=== PATIENT | female | born 1985 | race Caucasian/White ===

== ENCOUNTER 2018-09-02 17:19 | Emergency (ER) | payer OTHER ==
[2018-09-02 19:17] VITALS: BP 115/68
--- NOTE | 2018-09-02 20:03 | ED ---
Skin Complaint - HPI Summary HPI Summary: 33 yr old female with the complaint of left thumb pain. Onset of pain was yesterday. She states her thumb felt a little sore, but she didn't see anything. She recalls no trauma, no working to put at risk for foreign body. She noticed early today that she had a blister that is whitish forming and the thumb appeared a little red. The patient has increasing pain. No redness to the forearm. No fever or chills. - History of Current Complaint Chief Complaint: UCSkin Time Seen by Provider: 09/02/18 19:28 Stated Complaint: SKIN ISSUE LEFT THUMB Hx Last Menstrual Period: 08/26/18 Pain Intensity: 4 - Allergy/Home Medications Allergies/Adverse Reactions: Allergies Allergy/AdvReac Type Severity Reaction Status Date / Time Sulfa (Sulfonamide Allergy Rash Verified 09/02/18 19:18 Antibiotics) Home Medications: Home Medications Propranolol HCl 10 mg PO DAILY 09/02/18 [History Confirmed 09/02/18] Vilazodone (NF) [Viibryd (NF)] 40 mg PO DAILY 09/02/18 [History Confirmed ] PMH/Surg Hx/FS Hx/Imm Hx - Surgical History Surgery Procedure, Year, and Place: right wrist surgery Infectious Disease History: No Infectious Disease History: Denies: Traveled Outside the [place] in Last 30 Days - Social History Alcohol Use: None Substance Use Type: Reports: None Smoking Status (MU): Never Smoked Tobacco Review of Systems Constitutional: Negative Positive: Other - left thumb with erythema and small white blister All Other Systems Reviewed And Are Negative: Yes Physical Exam Triage Information Reviewed: Yes Vital Signs On Initial Exam: Initial Vitals Temp Pulse Resp BP Pulse Ox 98.2 F 62 16 115/68 100 09/02/18 19:12 09/02/18 19:12 09/02/18 19:12 09/02/18 19:12 09/02/18 19:12 Vital Signs Reviewed: Yes Appearance: Positive: Well-Appearing Skin: Positive: Warm Head/Face: Positive: Normal Head/Face Inspection Eyes: Positive: EOMI ENT: Positive: Normal ENT inspection Respiratory/Lung Sounds: Positive: Other - normal effort Cardiovascular: Positive: Pulses are Symmetrical in both Upper and Lower Extremities Abdomen Description: Negative: Distended Musculoskeletal: Positive: Strength/ROM Intact, Other - left thumb with small white blister without any clear fluid, no red base. No FB seen. Neurological: Positive: Sensory/Motor Intact, Alert, Oriented to Person Place, Time, CN Intact II-III Psychiatric: Positive: Normal Diagnostics - Vital Signs Vital Signs Temp Pulse Resp BP Pulse Ox 09/02/18 19:12 98.2 F 62 16 115/68 100 - Laboratory Lab Statement: Any lab studies that have been ordered have been reviewed, and results considered in the medical decision making process. - Radiology left thumb Radiology Interpretation Completed By: ED Physician - NAD Course/Dx - Course Course Of Treatment: 33 yr old with cellulitis and pustule left thumb. No FB on xray and no palpated or by history. Plan DC home on clindamycin. FU with PMD and also given ortho referral for hand follow up. - Diagnoses Provider Diagnoses: Cellulitis of thumb, left Discharge - Sign-Out/Discharge Documenting (check all that apply): Patient Departure All imaging exams completed and their final reports reviewed: No - Discharge Plan Condition: Good Disposition: HOME Prescriptions: Clindamycin Cap(NF) [Clindamycin Cap 300 mg Cap(NF)] 300 mg PO TID #30 cap Patient Education Materials: Cellulitis (ED) Referrals: Fifi Barreto NP [Primary Care Provider] - 2 Days El Harris MD [Medical Doctor] - 2 Days - Billing Disposition and Condition Condition: GOOD Disposition: Home
--- NOTE | 2018-09-03 13:41 | UC ---
- Progress Note Progress Note: Patient Name: BILL GAGNON Medical Record#: [id number] Ordering Physician: Ryan Talbot MD Acct.#: [id number] : 1985 Age: 33 Sex: F Location: [facility] Exam Date: 09/02/181938 ADM Status: [facility] ER Order Information: THUMB LEFT Accession Number: [id number] CPT: 50069 Indication: LEFT thumb pain and redness. Soft tissue swelling. No preceding injury. Comparison: No relevant prior exams available on the [facility] PACS. Technique: AP, lateral, and oblique views LEFT thumb. REPORT AND IMPRESSION: #. Distal volar soft tissue swelling. No conspicuous foreign body or subcutaneous emphysema. Negative for fracture or malalignment. Preserved joint spaces. R0 Preliminary Imaging Read R0 <Electronically signed by Ryan Macias MD in OV> 09/03/18757 Dictated By: Ryan Macias MD Dictated Date/Time: 09/03/18757 Transcribed Date/Time: 09/03/18755 Copy to: CC:Tabatha MANDUJANO; Ryan Talbot MD Imaging - [facility] Imaging [facility] [address] [place] [address] ph ([phone]) ph ([phone]) ph ([phone]) This report is only to be considered final once signed by the Provider(s) as displayed in the "<Electronically Signed by >" field (s). Absence of a signature indicates the report is in a draft status and still needs to be finalized. In the event this document was created by someone other than the signing Provider, the individual initiating the document will be listed in the "Entered by:" or "Dictated by:" oconnor. 1 of 1 Course/Dx - Diagnoses Provider Diagnoses: Cellulitis of thumb, left Discharge - Sign-Out/Discharge Documenting (check all that apply): Post-Discharge Follow Up All imaging exams completed and their final reports reviewed: Yes - Discharge Plan Condition: Good Disposition: HOME Prescriptions: Clindamycin Cap(NF) [Clindamycin Cap 300 mg Cap(NF)] 300 mg PO TID #30 cap Patient Education Materials: Cellulitis (ED) Referrals: El Harris MD [Medical Doctor] - 2 Days Fifi Barreto NP [Primary Care Provider] - 2 Days - Billing Disposition and Condition Condition: GOOD Disposition: Home
== END 2018-09-02 20:38 | disposition home or self-care (01) ==
LOC: UCCORT 17:19
DX: L03.012 Cellulitis of left finger (principal); Z88.2 Allergy status to sulfonamides
CPT/HCPCS: 99202; G0463

== ENCOUNTER 2019-03-04 06:27 | Day surgery (SDC) | payer OTHER ==
[~2019-03-04 06:27] MED LIST: Buffered Lidocaine 1% SYRIN* 1 ML/SYRINGE INTRADERM ONE; Lactated Ringers 1000 ML Bag* 1,000 ML IV SCH; Sodium Citrate/Citric Acid* 15 ML UDC ONE; Sodium Citrate/Citric Acid* 15 ML UDC PO ONE
[2019-03-04] MEDS ORDERED: ceFAZolin 2 GM PREMIX in ORs 2 GM/50 ML BAG ONE (06:38)
[2019-03-04] MEDS ORDERED: Bupivacaine 0.25% SDV* 30 ML ONE (07:23)
[2019-03-04] MEDS ORDERED: Propofol* 10 MG/ML 20 ML BTL ONE (07:29)
[2019-03-04] MEDS ORDERED: Lidocaine 2% PF * 5 ML VIAL ONE (07:29)
[2019-03-04] MEDS ORDERED: Ketorolac INJ* 30 MG/ML 1 ML VIAL ONE (08:00)
[2019-03-04] MEDS ORDERED: Ondansetron INJ* 2 MG/ML VIAL IV PRN (08:19)
[2019-03-04] MEDS ORDERED: Naloxone* 0.4 MG/ML 1 ML VIAL IV PRN (08:19)
[2019-03-04] MEDS ORDERED: Ondansetron INJ* 2 MG/ML VIAL ONE (09:04)
[2019-03-04 09:40] VITALS: BP 112/80
[2019-03-04] MEDS ORDERED: HYDROcodone/ACETAMIN 5-325 MG* 1 TAB ONE (09:42)
--- NOTE | 2019-03-04 12:18 | OP ---
DATE OF OPERATION: 03/04/19 [facility] DATE OF : 83 SURGEON: Sebastian Garcia MD [employer]ING [employer] HELPER: CARLINE Pierce ANESTHESIOLOGIST: Dr. López. ANESTHESIA: General. PRE-OP DIAGNOSES: 1. Right carpal tunnel syndrome. 2. Right volar wrist ganglion cyst. POST-OP DIAGNOSES: 1. Right carpal tunnel syndrome. 2. Right volar wrist ganglion cyst. OPERATIVE PROCEDURE: 1. Right endoscopic carpal tunnel release. 2. Right volar wrist ganglion cyst excision. INDICATIONS: Ms. Gaspar is 33 years old. She has the aforementioned conditions. We talked about risks and benefits and treatment options. She had wanted to proceed. ESTIMATED BLOOD LOSS: 2 mL. COMPLICATIONS: None. FINDINGS: See above and below. DESCRIPTION OF PROCEDURE: Ms. Gaspar was seen in the preoperative holding area. The correct site, side, and procedure were identified. We came back to the operating room. The arm was prepped and draped in the usual fashion and a time-out was performed. The arm was exsanguinated with the Esmarch and the tourniquet was inflated to 250 mmHg. I first made a 1 cm incision just ulnar to the palmaris longus tendon and just proximal to the wrist flexion crease. Dissection was carried down and the distal antebrachial fascia was split transversely bluntly with tenotomy scissors. A 2-prong skin hook was placed. Carpal tunnel was dilated and dried out, and then MicroAire endoscopic carpal tunnel system was utilized to release the ligament from distal to proximal taking care to make sure there was no interposing soft tissue between the ligament and the blade. Once I had confirmed the release distally, I went ahead and released the distal antebrachial fascia proximally with tenotomy scissors. I then made a 2 cm longitudinal incision over the volar wrist ganglion cyst. Dissection was carried down. The radial artery was mobilized and retracted radially. The margins of the cysts were developed and taken back to the volar wrist joint capsule where it was emanating what looked like off the volar scapholunate joint. The cyst was amputated and the stalk of the cyst was cauterized with Bovie. At this point, everything was looking good. Both of wounds were irrigated out. The carpal tunnel wound was closed with 4-0 Prolene suture. The cyst wound was closed with 4-0 Monocryl suture and Steri-Strips. 0.25% Marcaine was infiltrated. The wounds were dressed and a cock-up wrist splint was applied. She was taken to the recovery room in stable condition. [id number]/CPS #: [id number] MTDD
== END 2019-03-04 10:00 | disposition home or self-care (01) ==
LOC: OREAST 06:27
PROVIDERS: ATTEND Orthopaedic Surgery Hand Surgery
DX: G56.01 Carpal tunnel syndrome, right upper limb (principal); M67.431 Ganglion, right wrist; F41.8 Other specified anxiety disorders
CPT/HCPCS: 81025; 88304; A9270-GY; J0690; J1885; J2405; J2704; J3490